=== PATIENT | male | born 1990 | race Caucasian/White ===

== ENCOUNTER 2019-08-01 20:57 | Emergency (ER) | payer OTHER ==
[~2019-08-01] VITALS: Ht 182.9 cm; Wt 90.9 kg
[2019-08-01] MEDS ORDERED: IBUPROFEN 600 MG TAB PO ONE (22:45)
[2019-08-01 22:54] VITALS: BP 129/65
--- NOTE | 2019-08-02 08:34 | REP ---
Right ankle four views : There is no fracture or dislocation. Mineralization and joint spaces are normal. There are no calcifications or foreign bodies. I suspect soft tissue edema laterally. This should be confirmed clinically. Impression: Negative right ankle except for possible soft tissue edema laterally. This should be confirmed clinically. . Electronically Signed by Jayesh Gates MD 08/02/2019 08:25 A
== END 2019-08-01 23:11 | disposition home or self-care (01) ==
LOC: M ED 20:57
DX: S93.401A Sprain of unspecified ligament of right ankle, initial encounter (principal); X58.XXXA Exposure to other specified factors, initial encounter; Y92.410 Unspecified street and highway as the place of occurrence of the external cause; Y93.67 Activity, basketball; Y99.8 Other external cause status

== ENCOUNTER → 2019-08-01 | Outpatient (CLI) | payer OTHER ==
--- NOTE | 2019-08-01 08:40 | REPVR ---
PROCEDURE INFORMATION: Exam: MR Cervical Spine Without Contrast Exam date and time: 08/01/2019 7:33 AM Age: 29 years old Clinical indication: Patient HX: Left upper extremity numbness; Additional info: Cervicalgia TECHNIQUE: Imaging protocol: Multiplanar magnetic resonance images of the cervical spine without contrast. COMPARISON: No relevant prior studies available. FINDINGS: Vertebrae: There is straightening of the cervical spine which could be secondary to positioning or muscle spasm. The cervical vertebral bodies are normal height and alignment.No acute fracture or dislocation is seen.The atlantoaxial articulation is normal.There is a normal proportion of hematopoietic bone marrow and fat for this patient's age.There is no evidence of abnormal bone marrow signal intensity to suggest contusion or infection. Spinal cord: The cervical spinal cord is normal in thickness and signal intensity.There is no cord compression or intramedullary signal abnormality. Spinal epidural space: There is no evidence for epidural mass or hemorrhage. C2-C3: No significant disc disease. No significant spinal stenosis. C3-C4: There is no significant degenerative disc herniation.The spinal canal and neural foramina are patent and without significant stenosis. C4-C5: Mildly reduced in height and T2 signal indicating degeneration. Small posterior central herniation.The facet joints demonstrate mild degenerative hypertrophy and sclerosis.The spinal canal and neural foramina are patent and without significant stenosis. C5-C6: Moderately reduced in height and T2 signal indicating degeneration. Large left paracentral and foraminal disc spur complex. The facet joints demonstrate mild degenerative hypertrophy and sclerosis. Severe left lateral recess and foraminal stenosis with compression on the left exiting nerve root. C6-C7: There is no significant degenerative disc herniation.The spinal canal and neural foramina are patent and without significant stenosis. C7-T1: There is no significant degenerative disc herniation.The spinal canal and neural foramina are patent and without significant stenosis. Brain: The visualized brain parenchyma is unremarkable. Vertebral arteries: Expected flow voids in the vertebral arteries. Soft tissues: The prevertebral soft tissues appear normal. IMPRESSION: MRI of the cervical spine reveals degenerative spondylitic changes and degenerative disc disease, most significant at C5-C6 level as described above. Electronically signed by: Syed Sanchez On 08/01/2019 08:40:26 AM
--- NOTE | 2019-08-01 09:05 | REPVR ---
PROCEDURE INFORMATION: Exam: MR Chest Without Contrast; Brachial Plexus Exam date and time: 08/01/2019 7:06 AM Age: 29 years old Clinical indication: Patient HX: Lt upper extremity numbness; Additional info: Cervicalgia, attn brachial plexus TECHNIQUE: Imaging protocol: MR chest without contrast. Exam focused on the left brachial plexus. 3D rendering: MIP and/or 3D reconstructed images were created by the technologist. COMPARISON: No relevant prior studies available. FINDINGS: The study is slightly limited due to motion artifact. No T2 hyperintense collections visualized within lateral spinal canal or cervical neural foramina to indicate pseudomeningocele formation in the setting of nerve sheath tear/root avulsion. No apical lung mass is seen. With specific attention to the interscalene region, no mass, increased T2 signal or inflammation is noted with preservation of normal fat signal intensity. No edema or enlargement of the left brachial plexus cords or divisions. No axillary mass or lymphadenopathy. Volume of the rotator cuff musculature appears preserved. No significant lymphadenopathy is seen. Bone marrow signal intensity of the visualized osseous structures is unremarkable. No acute fracture or dislocation is seen. IMPRESSION: Normal MRI of the left brachial plexus. There is no MRI evidence for left-sided brachial plexus injury. Electronically signed by: Syed Sanchez On 08/01/2019 09:04:40 AM
== END ==
LOC: M RAD 06:25
PROVIDERS: ATTEND Physician Assistant
DX: M50.322 Other cervical disc degeneration at C5-C6 level (principal); S93.401A Sprain of unspecified ligament of right ankle, initial encounter; X58.XXXA Exposure to other specified factors, initial encounter; Y92.410 Unspecified street and highway as the place of occurrence of the external cause; Y93.67 Activity, basketball; Y99.8 Other external cause status